=== PATIENT | male | born 1950 | race Caucasian/White ===

== ENCOUNTER → 2021-03-24 | Outpatient (CLI) | payer MEDICARE ==
[~2021-03-24] VITALS: Ht 172.7 cm; Wt 139.3 kg
[~2021-03-24] MED LIST: REGADENOSON 0.4 MG/5 ML PF SYG IVP SCH
== END | disposition home or self-care (01) ==
LOC: EDUNIT# 03-11 08:50 → SHCH 09:06
PROVIDERS: ATTEND Internal Medicine Cardiovascular Disease
DX: I20.9 Angina pectoris, unspecified (principal); R06.02 Shortness of breath
CPT/HCPCS: 78452; 93017; 96374; A9500 ×2; J2785

== ENCOUNTER 2021-10-06 07:15 | Day surgery (SDC) | payer MEDICARE ==
[~2021-10-06] VITALS: Ht 172.7 cm; Wt 138.3 kg
[2021-10-06 07:33] VITALS: BP 160/98
[2021-10-06] MEDS ORDERED: METF-444 PO (07:33)
== END 2021-10-06 07:30 | disposition home or self-care (01) ==
LOC: DAH 07:15 → ENDO 07:15
PROVIDERS: ATTEND Surgery
DX: Z01.818 Encounter for other preprocedural examination (principal); K21.9 Gastro-esophageal reflux disease without esophagitis; I51.7 Cardiomegaly; Z79.899 Other long term (current) drug therapy
CPT/HCPCS: 71045; 82948; 93005

== ENCOUNTER 2022-06-29 06:05 | Day surgery (SDC) | payer MEDICARE ==
[2022-06-29] VITALS (8 sets, daily range): BP systolic 151–182; BP diastolic 81–96
[~2022-06-29] VITALS: Ht 172.7 cm; Wt 132.9 kg
[~2022-06-29 06:05] MED LIST changes: +HUM10VIA SQ; -REGADENOSON 0.4 MG/5 ML PF SYG IVP SCH
[2022-06-29 07:18] LABS: HEMATOCRIT 43.1 % (42-54); MEAN CORPUSCULAR HGB CONC 31.3 g/dL (32.0-36.0); MEAN CORPUSCULAR VOLUME 89.4 fL (79-99); PLATELET COUNT (AUTO) 328 K/uL (130-400); RED BLOOD CELL COUNT(AUTO) 4.82 MIL/uL (4.50-6.20); RED CELL DISTRIBUTION WIDTH 13.9 % (11.0-15.5); WHITE BLOOD COUNT (AUTO) 10.4 K/uL (4.8-10.8)
[2022-06-29 07:23] LABS: BASOPHILS % (AUTO) 0.8 % (0.0-5.0); EOSINOPHILS % (AUTO) 2.6 % (0.0-8.0); LYMPHOCYTES % (AUTO) 21.1 % (21.0-51.0); MONOCYTES % (AUTO) 7.2 % (3.0-13.0); NEUTROPHILS % (AUTO) 67.7 % (40.0-77.0)
[2022-06-29 07:25] LABS: INR 0.93 (0.85-1.15); PROTHROMBIN TIME 9.7 SEC (9.6-11.6)
[2022-06-29 07:27] LABS: CREATININE 3.4 mg/dL (0.5-1.5); POTASSIUM 5.1 mmol/L (3.5-5.1)
[2022-06-29] MEDS ORDERED: PROPOFOL 10 MG/ML 20ML VIAL IV ONE (07:43)
[2022-06-29] MEDS ORDERED: LIDOCAINE PF 100MG/5ML (2%) SYRINGE 5ML ONE (07:43)
[2022-06-29] MEDS ORDERED: 0.9%NACL 1000ML 1,000 ML IV ONE (07:53)
== END 2022-06-29 09:07 | disposition home or self-care (01) ==
LOC: DAH 06:05
PROVIDERS: ATTEND Surgery
DX: K21.9 Gastro-esophageal reflux disease without esophagitis (principal); K29.70 Gastritis, unspecified, without bleeding; I10 Essential (primary) hypertension; E11.9 Type 2 diabetes mellitus without complications; G47.33 Obstructive sleep apnea (adult) (pediatric); F17.200 Nicotine dependence, unspecified, uncomplicated; E78.00 Pure hypercholesterolemia, unspecified; E66.01 Morbid (severe) obesity due to excess calories; Z90.89 Acquired absence of other organs; Z98.890 Other specified postprocedural states; Z82.49 Family history of ischemic heart disease and other diseases of the circulatory system; Z82.3 Family history of stroke; Z68.42 Body mass index [BMI] 45.0-49.9, adult
CPT/HCPCS: 80048; 85025; 85610; 85730; 82948; 87426; 36415; 71045; 43239; J7030 ×2; J2001; J2704; A4620; A4215 ×2; A4223; A7002; A4222; A4221; A4663

== ENCOUNTER → 2022-09-02 | Outpatient (CLI) | payer OTHER | END | disposition home or self-care (01) | LOC: DTH 09:55 | PROVIDERS: ATTEND Surgery | DX: Z71.3 Dietary counseling and surveillance (principal); E66.9 Obesity, unspecified; Z68.41 Body mass index [BMI] 40.0-44.9, adult | CPT/HCPCS: 97803 ==